=== PATIENT | male | born 1950 ===

== ENCOUNTER 2018-04-15 15:28 | Observation (INO) | payer MEDICARE, OTHER ==
[2018-04-15] MEDS ORDERED: NS 0.9% 1000 ML* 1,000 ML IV ONE (18:21)
[2018-04-15 18:41] LABS: ABS Basophils 0.1 10^3/ul (0-0.2); ABS Eosinophils 0.2 10^3/ul (0-0.6); ABS Lymphocytes 1.6 10^3/ul (1.0-4.8); ABS Monocytes 0.6 10^3/ul (0-0.8); ABS Neutrophils 4.3 10^3/ul (1.5-7.7); ABS Nucleated RBC 0 10^3/ul; Eosinophil % 2.9 % (0-6); Hematocrit 38 % (42-52); Hemoglobin 12.7 g/dl (14.0-18.0); Lymphocyte % 23.3 % (25-47); Mean Corpuscular HGB Conc 33 g/dl (31-36); Mean Corpuscular Hemoglobin 32 pg (27-31); Mean Corpuscular Volume 94 fL (80-94); Mean Platelet Volume 7.1 um3 (7.4-10.4); Nucleated Red Blood Cells % 0.1; Platelet Count 272 10^3/ul (150-450); Red Blood Count 4.02 10^6/ul (4.00-5.40); Red Cell Distribution Width 15 % (10.5-15); White Blood Count 6.8 10^3/ul (3.5-10.8)
[2018-04-15 19:01] LABS: INR 0.96 (0.77-1.02)
--- NOTE | 2018-04-15 19:14 | ED ---
Gracie Licea Tenzin, scribed for Adriano Armstrong MD on 04/15/18 at 1818 . GI/ HPI - HPI Summary HPI Summary: Pt is a 67 years old male presenting to the ED complaining of hernia pain exacerbating in the last 5 or 6 days ago. Pt notes that the pain was so bad that "I crumbled up and lay down on the floor at work". The hernia pain is at his scrotum radiating to his testicles. Pt notes that the pain at worst is rated at 7/10 and currently 2/10 in severity. Pt is also complaining of feeling nauseous and "hot" when he is in severe pain. His appetite and drinking has reduced since the hernia pain got more severe. Denies dysuria, fevers or chills. Sitting alleviates the pain but standing, walking and eating certain fiber rich meal like oatmeal aggravates the pain. He takes aspirin a day. He had a hip surgery done in the past. - History of Current Complaint Chief Complaint: EDGeneral Time Seen by Provider: 04/15/18 17:59 Stated Complaint: POSSIBLE HERNIA Hx Obtained From: Patient Onset/Duration: Still Present Timing: Lasting Days - pain got worse in the last 5 or 6 days. Current Severity: Mild Pain Intensity: 4 Location of Pain: Other - Hernia radiating to this testicles. Associated Signs and Symptoms: Positive: Nausea, Change in Appetite - reduced appetite.. Negative: Fever, Dysuria Aggravating Factor(s): Movement - or just Standing., Walking/Exertion Alleviating Factor(s): Rest, Lying Still - Allergy/Home Medications Allergies/Adverse Reactions: Allergies Allergy/AdvReac Type Severity Reaction Status Date / Time No Known Allergies Allergy Verified 04/15/18 15:34 Home Medications: Home Medications Aspirin TAB* [Aspirin 325 MG TAB*] 325 mg PO DAILY 04/15/18 [History Confirmed 04/15/18] Calcium Polycarbophil TAB* [Fibercon TAB*] 625 mg PO DAILY 04/15/18 [History Confirmed 04/15/18] Multivitamins/Minerals TAB* [Theragran/minerals TAB*] 1 tab PO DAILY 04/15/18 [ History Confirmed 04/15/18] PMH/Surg Hx/FS Hx/Imm Hx Endocrine/Hematology History: Denies: Hx Diabetes Cardiovascular History: Denies: Hx Coronary Artery Disease - Surgical History Surgery Procedure, Year, and Place: Hip Surgery done in the past. - Immunization History Immunizations Up to Date: Yes Infectious Disease History: No Infectious Disease History: Denies: Traveled Outside the [place] in Last 30 Days - Family History Known Family History: Positive: Cardiac Disease, Hypertension, Diabetes, Other - CANCER - Social History Alcohol Use: Occasionally Substance Use Type: Reports: None Smoking Status (MU): Never Smoked Tobacco Review of Systems Negative: Fever, Chills Positive: other - severe hernia pain near his scrotum. . Negative: dysuria All Other Systems Reviewed And Are Negative: Yes Physical Exam - Summary Physical Exam Summary: General: well-appearing, no pain distress Skin: warm, color reflects adequate perfusion, dry Head: normal Eyes: EOMI, DIMITRI ENT: normal Neck: supple, nontender Respiratory: CTA, breath sounds present Cardiovascular: RRR Abdomen: soft, nontender Bowel: positive bowel sounds. Musculoskeletal: normal, strength/ROM intact Neurological: sensory/motor intact, A&O x3 Psychological: affect/mood appropriate Genitourinary: Right scrotum and right inguinal region is swollen which is reducible. Triage Information Reviewed: Yes Vital Signs On Initial Exam: Initial Vitals Temp Pulse Resp BP Pulse Ox 98.0 F 81 16 136/91 97 04/15/18 15:30 04/15/18 15:30 04/15/18 15:30 04/15/18 15:30 04/15/18 15:30 Vital Signs Reviewed: Yes Diagnostics - Vital Signs Vital Signs Temp Pulse Resp BP Pulse Ox 04/15/18 17:38 98.0 F 68 16 132/83 98 04/15/18 15:30 98.0 F 81 16 136/91 97 - Laboratory Lab Results: Lab Results 04/15/18 04/15/18 Range/Units 18:29 18:29 WBC 6.8 (3.5-10.8) 10^3/ul RBC 4.02 (4.00-5.40) 10^6/ul Hgb 12.7 L (14.0-18.0) g/dl Hct 38 L (42-52) % MCV 94 (80-94) fL MCH 32 H (27-31) pg MCHC 33 (31-36) g/dl RDW 15 (10.5-15) % Plt Count 272 (150-450) 10^3/ul MPV 7.1 L (7.4-10.4) um3 Neut % (Auto) 63.4 (38-83) % Lymph % (Auto) 23.3 L (25-47) % [place] % (Auto) 9.6 H (0-7) % Eos % (Auto) 2.9 (0-6) % Baso % (Auto) 0.8 (0-2) % Absolute Neuts (auto) 4.3 (1.5-7.7) 10^3/ul Absolute Lymphs (auto) 1.6 (1.0-4.8) 10^3/ul Absolute Monos (auto) 0.6 (0-0.8) 10^3/ul Absolute Eos (auto) 0.2 (0-0.6) 10^3/ul Absolute Basos (auto) 0.1 (0-0.2) 10^3/ul Absolute Nucleated RBC 0 10^3/ul Nucleated RBC % 0.1 INR (Anticoag Therapy) 0.96 (0.77-1.02) APTT 29.9 (26.0-36.3) seconds Result Diagrams: 04/15/18 18:29 Lab Statement: Any lab studies that have been ordered have been reviewed, and results considered in the medical decision making process. GIGU Course/Dx - Course Course Of Treatment: DISCUSSED WITH DR RODAS. DISPOSITION PENDING AT SHIFT CHANGE. - Diagnoses Provider Diagnoses: Abdominal pain, Right inguinal hernia - Physician Notifications Discussed Care Of Patient With: Ashkan Rodas Time Discussed With Above Provider: 18:14 - Get the lab and CT done and re- evaluate the results and decide if he should be admitted or discharged. Discharge - Sign-Out/Discharge Documenting (check all that apply): Sign-Out Patient Signing out patient TO: Poonam Nation - awaiting US Testicular, CT ABD/PEL - Discharge Plan Condition: Stable Disposition: ADMITTED TO [facility] Referrals: Ollie Marmolejo MD [Primary Care Provider] - - Billing Disposition and Condition Condition: STABLE Disposition: Admitted to [facility] [place] The documentation as recorded by the Gracie hinson Tenzin accurately reflects the service I personally performed and the decisions made by me, Adriano Armstrong MD.
[2018-04-15 19:29] LABS: EGFR Non-African American 93.7 (>60)
[2018-04-15] MEDS ORDERED: Iohexol 300* (CONTRAST) 10 ML SDV IV ONE (19:35)
--- NOTE | 2018-04-15 19:58 | RAD ---
INDICATION: Right scrotal mass. COMPARISON: There are no prior studies available for comparison. TECHNIQUE: Multiple real-time images of the testicles were obtained including color Doppler images and Doppler tracings. FINDINGS: The testicles are normal in size, shape and echogenicity. The right testicle measured 4.2 x 2.3 x 2.9 cm and the left testicle measured 3.9 x 2.0 x 2.7 cm. No intratesticular mass is seen. There appears to be slightly more vascular flow within the right testicle which is likely artifactual due to the more superficial position of the testicle. The epididymides appear to be within normal limits. There was a large right hydrocele. There is a hernia in the right scrotal sac containing peristalsing bowel which appeared to reduce during the exam. IMPRESSION: 1. HERNIA CONTAINING BOWEL EXTENDING INTO THE RIGHT SCROTAL SAC. 2. LARGE RIGHT HYDROCELE.
--- NOTE | 2018-04-15 20:57 | RAD ---
INDICATION: Abdominal pain large right inguinal scrotal hernia. COMPARISON: Comparison is made with a prior testicular ultrasound from April 15, 2018. TECHNIQUE: A CT scan of the abdomen and pelvis was performed with intravenous and with oral contrast following intravenous injection of 93 ml of Omnipaque 300 nonionic contrast. Contiguous axial sections were obtained from the lung bases through the symphysis pubis. Images were reconstructed in the coronal and sagittal planes. FINDINGS: The lung bases are clear. No pleural effusion is present. The liver and spleen are normal in size. No significant focal hepatic abnormality is seen. The gallbladder appears distended. No calcified gallstones or gallbladder wall thickening is seen. The pancreas appears to be within normal limits. The kidneys and adrenal glands are normal in size. No hydronephrosis is seen. There is a 2.2 cm right renal cyst. The aorta is normal in caliber and demonstrates homogeneous contrast opacification. No significant enlarged retroperitoneal lymph nodes are seen. The stomach, small and large bowel appear nondistended. The appendix is within normal limits. There is a right inguinal hernia containing small bowel. There is no evidence for obstruction. No free intraperitoneal air or fluid is seen. The patient is status post operative reduction and internal fixation of a fracture of the proximal left femur which appears healed. No other focal osseous abnormalities are seen. IMPRESSION: RIGHT INGUINAL HERNIA CONTAINING SMALL BOWEL.
[2018-04-15] MEDS ORDERED: NS 0.9% 1000 ML* 1,000 ML IV SCH (21:30)
[2018-04-15] MEDS ORDERED: Morphine VIAL* 4 MG/ML VIAL (1 ml vial) IV PRN (21:30)
--- NOTE | 2018-04-15 21:53 | RAD ---
INDICATION: Preoperative study. COMPARISON: Comparison is made with a prior chest x-ray study from June 17, 2012. TECHNIQUE: A portable view of the chest was obtained. FINDINGS: Cardiac and mediastinal contours appear to be within normal limits. The lungs are underinflated and clear. No pleural effusion is seen. IMPRESSION: NO EVIDENCE FOR ACUTE DISEASE.
--- NOTE | 2018-04-15 23:39 | ED ---
Fariha Licea Elizabeth, scribed for Poonam Nation MD on 04/15/18 at 2020 . Progress - Progress Note Progress Note: The patient was signed out to Dr. Nation from Dr. Armstrong upon physician shift change pending US and CT results. - Results/Orders Results/Orders: Testicular US Interpreted by radiologist. IMPRESSION: 1. HERNIA CONTAINING BOWEL EXTENDING INTO THE RIGHT SCROTAL SAC. 2. LARGE RIGHT HYDROCELE. Dr. Nation has reviewed this report. CT Abd/Pelvis Interpreted by radiologist. IMPRESSION: RIGHT INGUINAL HERNIA CONTAINING SMALL BOWEL. Dr. Nation has reviewed this report. 21:[address] Nation Sinus rhythm at 62 bpm with LVH. CXR Interpreted by radiologist. IMPRESSION: NO EVIDENCE FOR ACUTE DISEASE. Dr. Nation has reviewed this report. Course/Dx - Course Course Of Treatment: DISCUSSED WITH DR RODAS. DISPOSITION PENDING AT SHIFT CHANGE. After imaging results came back, Dr. Rodas was consulted at 21:00 and he agreed to admit the patient [place] [facility] [place] dx of righ inguinal hernia. The patient is agreeable with this plan. - Diagnoses Provider Diagnoses: Abdominal pain, Right inguinal hernia - Provider Notifications Discussed Care Of Patient With: Ashkan Rodas Time Discussed With Above Provider: 18:14 - Get the lab and CT done and re- evaluate the results and decide if he should be admitted or discharged. Instructed by Provider To: Other - Discussed patient care with Dr. Rodas again at 21:00 after imaging results were obtained. Dr. Rodas agrees to admit the patient to [facility]. Discharge - Sign-Out/Discharge Documenting (check all that apply): Discharge/Admit/Transfer - Discharge Plan Condition: Stable Disposition: ADMITTED TO [facility] Discharge Disposition Comment: patient admitted to [facility] Referrals: Ollie Marmolejo MD [Primary Care Provider] - The documentation as recorded by the Fariha hinson Elizabeth accurately reflects the service I personally performed and the decisions made by Rios sinclair Abdul, MD.
[2018-04-16] MEDS ORDERED: Buffered Lidocaine 0.9% SYRIN* 5 ML/SYR SYRINGE INTRADERM ONE (08:35)
[2018-04-16] MEDS ORDERED: Ondansetron ODT TAB* 4 MG PO PRN (08:36)
[2018-04-16] MEDS ORDERED: HYDROcodone/ACETAMIN 5-325 MG* 1 TAB PO PRN (08:36)
[2018-04-16] MEDS ORDERED: Naloxone* 0.4 MG/ML 1 ML VIAL IV PRN (08:36)
[2018-04-16] MEDS ORDERED: fentaNYL* 50 MCG/ML 2 ML VIAL (100 MCG VIAL) IV PRN (08:36)
[2018-04-16] MEDS ORDERED: DiMENhydriNATE IV* 50 MG/ML VIAL IV PUSH PRN (08:36)
[2018-04-16] MEDS ORDERED: Acetaminophen TAB* 325 MG PO PRN (08:36)
[2018-04-16] MEDS ORDERED: PROCHLORPERAZINE INJ 5 MG/ML 2 ML VIAL IV PRN (08:36)
[2018-04-16] MEDS ORDERED: ceFAZolin 2 GM PREMIX (*) 2 GM/50 ML BAG IVPB ONE ×2 (08:42→08:54)
[2018-04-16] MEDS ORDERED: Pneumococcal *Vac Polyvalent 0.5 ML VIAL IM ONE (09:00)
[2018-04-16] MEDS ORDERED: Morphine INJ* 10 MG/ML 1 ML CARPUJECT ONE (09:23)
--- NOTE | 2018-04-16 09:26 | HP ---
CC: Dr. Ollie Marmolejo * ADMISSION HISTORY AND PHYSICAL DATE OF ADMISSION: 04/15/18 ATTENDING SURGEON: Dr. Dutch Szymanski * (DICTATED BY AMARI KELLEY) CHIEF COMPLAINT: Painful right inguinal hernia. HISTORY OF PRESENT ILLNESS: This is a 67-year-old generally healthy male who has had an apparent right inguinal hernia for at least the past year. 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 However, over the past week he has had more consistent pain in the area of the hernia, particularly when he is active and in fact he has had to lie down during the work day to relieve the discomfort. There is some associated nausea, but no vomiting. He has not otherwise had any problem with urination or defecation. PAST MEDICAL HISTORY: Unremarkable for any chronic or active medical problems, though he does not see his primary care provider on a regular basis. He was evaluated for pericarditis some years ago. He also states that he has mild hyperthyroidism which is treated without medication. He denies other history of heart disease, hypertension, diabetes, cancer, asthma or COPD. PAST SURGICAL HISTORY: His previous surgeries include repair of a left hip fracture in 2010 and tonsillectomy remotely. No reported surgical or anesthesia problems. MEDICATIONS: 1. Aspirin 325 mg once daily. 2. Multivitamin once daily. 3. FiberCon powder once daily. DRUG ALLERGIES: None known. FAMILY HISTORY: Negative for anesthesia problems, bleeding or clotting disorders. SOCIAL HISTORY: Patient lives alone. 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 He does not smoke. He does drink wine between 1 to 2 bottles per weekend, but not during the week. He denies other recreational drug use. REVIEW OF SYSTEMS: General: No recent constitutional symptoms other than per the HPI. He states that his weight is stable. Eyes: No recent changes noted. Ears, Nose, Throat: No problems reported. Nodes: No problems reported. Heart: As above, no additions, no chest pain or palpitations. Respiratory: No history of asthma, chronic cough or shortness of breath. GI: No nausea or vomiting. Last bowel movement yesterday. He did undergo colonoscopy in his 50s which he states was a normal exam. He is not inclined to have another screening colonoscopy. : No problems with urination. Endocrine: Mild hyperthyroidism as per his history. No history of diabetes. Musculoskeletal: No problems reported. Other review of systems are negative. PHYSICAL EXAMINATION GENERAL: Well nourished, thin, but well appearing male in no acute distress. VITAL SIGNS: Height 6'1 ". Weight 155. Temperature 98.1. Blood pressure 127/ 85. Pulse 70. Respirations 18. Room air saturation 97%. SKIN: Warm and dry. No suspicious rashes or lesions. HEENT: Pupils equal, round and reactive. EOMs intact. No conjunctival pallor. Oropharynx teeth in good repair, no intraoral lesions. NECK: No lymphadenopathy or obvious thyromegaly. No masses. No palpable cervical or supraclavicular lymphadenopathy. LUNGS: Clear to auscultation. No rales or wheezes. HEART: Regular rate and rhythm. No murmur appreciated. ABDOMEN: Soft, nontender to palpation. No palpable masses or organomegaly with the exception of the right groin area there is palpable reducible nontender mass consistent with right inguinal hernia. This is best demonstrated when he is standing. There may be some weakness in the direct space on the left, but no actual hernia. Testes otherwise normal. BACK: No spinous process or CVA tenderness. EXTREMITIES: No edema. Posterior tibial pulses palpable bilaterally. NEUROLOGIC: Grossly intact. Imaging: CT reveals a right inguinal hernia containing small bowel, without evidence of obstruction. An ultrasound also showed a large hydrocele. IMPRESSION: Symptomatic right inguinal hernia (not incarcerated or strangulated). PLAN: Patient will be seen for confirmation of exam and plan by Dr. Szymanski. At this point plan is for open repair right inguinal hernia with mesh. AMARI KELLEY [id number]/[facility] #: [id number] SWETA
[2018-04-16] MEDS ORDERED: Midazolam* 1 MG/ML 2 ML VIAL (2 MG) ONE (09:58)
[2018-04-16] MEDS ORDERED: fentaNYL* 50 MCG/ML 2 ML VIAL (100 MCG VIAL) ONE ×2 (09:58→11:07)
[2018-04-16] MEDS ORDERED: Lidocaine 1% MPF wEPI 200,000* 30 ML SDV ONE (10:22)
[2018-04-16] MEDS ORDERED: Bupivacaine 0.5% SDV PF* 30ML VIAL ONE (10:23)
[2018-04-16] MEDS ORDERED: Famotidine IV* 10 MG/ML 2 ML (20 mg) ONE (10:39)
[2018-04-16] MEDS ORDERED: Lidocaine 2% PF * 5 ML VIAL ONE (10:39)
[2018-04-16] MEDS ORDERED: Propofol* 10 MG/ML 20 ML BTL IV PUSH ONE (10:39)
[2018-04-16] MEDS ORDERED: Dexamethasone IV* 4 MG/ML 1 ML (4 MG) ONE (10:39)
[2018-04-16] MEDS ORDERED: Ketorolac INJ* 30 MG/ML 1 ML VIAL ONE (11:05)
[2018-04-16 12:53] VITALS: BP 147/84
--- NOTE | 2018-04-16 12:56 | DS ---
CC: Dutch Szymanski MD; Ollie Marmolejo MD DISCHARGE SUMMARY: DATE OF ADMISSION: 04/16/18 DATE OF DISCHARGE: 04/16/18 HISTORY: Mr. Velázquez is a 67-year-old male who came to the hospital with a very painful inguinal he rnia. This was ultimately able to be reduced and because of the size of the hernia and the magnitude of his pain, it was decided that operative repair will be carried out urgently. Therefore, he was t aken to the operating room on 04/16/18 where he underwent open repair with mesh of his right inguinal hernia. He tolerated this well and was discharged later the same day and will follow up in the offic e. [id number]/[facility] #: [id number]
--- NOTE | 2018-04-16 13:13 | OP ---
CC: Dr. Dutch Szymanski; Dr. Ollie Marmolejo OPERATIVE REPORT: DATE OF OPERATION: 04/16/18 DATE OF : 50 SURGEON: Dutch Szymanski MD. SPECIAL EQUIPMENT TECHNICIAN: Nissa. ANESTHESIOLOGIST: Dr. Leigh. ANESTHESIA: LMAC anesthesia. PRE-OP DIAGNOSIS: Right inguinal hernia. POST-OP DIAGNOSIS: Right inguinal hernia. OPERATIVE PROCEDURE: Open repair, right inguinal hernia with mesh. DESCRIPTION OF PROCEDURE: The patient was supine on the operating room table. After adequate intrave nous sedation, compression stockings, [place] Hugger warmer, and intravenous antibiotics, the right groi n was clipped and prepped with antiseptic, draped in a sterile fashion. Local infiltrative anesthesi a was administered and approximately 5 cm incision was created. Dissection carried down to the exter nal oblique, which was opened in the direction of its fibers and cord structures were encircled with a Donn drain and tented upward. There was a large indirect space hernia that extended down into t he scrotum. This was all dissected free and reduced. There was some hydrocele that was drained as w ell and then the sac was reduced and a cone mesh plug was placed into the internal ring, sutured ther e with 2-0 Vicryl, followed by a second piece of inguinal floor which was sutured at the tubercle. T ails were split, brought around the cord structures, tacked down laterally. External oblique was denys sed over top with 2-0 Vicryl, Emilie's with 3-0 Vicryl, skin with 4-0 Prolene followed by a sterile d ressing. He tolerated the procedure well, was awakened and brought to Recovery in good condition. N o complications. No drains. No pathologic specimens. Sponge and instrument counts correct. Estima adilia blood loss less than 20 mL. [id number]/[facility] #: [id number]
== END 2018-04-16 11:30 | disposition home or self-care (01) ==
LOC: ED 15:28 → SSU 21:43 → INTOOBSV 21:43
PROVIDERS: ADMIT Surgery; ATTEND Surgery
PROC: 0YU50JZ Supplement Right Inguinal Region with Synthetic Substitute, Open Approach (ICD-10-PCS; principal; 2018-04-16 10:15)
DX: K40.90 Unilateral inguinal hernia, without obstruction or gangrene, not specified as recurrent (principal); Z23 Encounter for immunization; Z79.82 Long term (current) use of aspirin; Z79.899 Other long term (current) drug therapy; I51.7 Cardiomegaly; R10.9 Unspecified abdominal pain
CPT/HCPCS: 36415; 71045; 74177; 76870; 80053; 83605; 83690; 84436; 84443; 85025; 85610; 85730; 86140; 90471; 90732; 93005; 96374; 99284; C1781; G0009; G0378; J0690; J1100; J1885; J2001; J2250; J2270; J2704; J3010; Q9967